=== PATIENT | female | born 1980 | race Caucasian/White ===

== ENCOUNTER 2018-11-14 08:29 | Emergency (ER) | payer SELFPAY ==
[2018-11-14 08:33] VITALS: BP 124/81; PULSE 85; RESP 12; TEMP 36.6; O2SAT 100; BMI 18.1
--- NOTE | 2018-11-14 08:53 | US_ITS ---
STUDY: ULTRASOUND OF THE FEMALE PELVIS - COMPLETE REASON FOR EXAM: Female, 38 years old. Irregular masses. One day history of the bleeding and cramping. LMP: November 03, 2018. TECHNIQUE: Transvaginal TECHNICAL QUALITY: Adequate. COMPARISON: None. FINDINGS: The uterus is anteverted and is in a midline position. The uterus measures 7.2 cm x 4.6 cm x 3.4 cm. Normal uterine cervix. The endometrium measures 5.0 mm in thickness, and is hyperechoic. There is no demonstrated endometrial mass. Heterogeneous echotexture of the uterus suggestive of a fibroid change although no focal fibroid is seen. I.U.D. - The patient does not have an I.U.D. The patient is status post right nephrectomy. The left ovary is visualized. The left ovary measures 3.7 cm x 3.6 cm x 1.8 cm. A dominant follicle is seen within it measuring 1.2 cm x 1.2 cm x 1.0 cm. There is no visualized left adnexal mass or complex lesion. There is normal arterial and normal venous vascularity. There is no fluid in the cul-de-sac. Polycystic ovary disease: No. US/Transvaginal Non- IMPRESSION: Heterogeneous echotexture of the uterus in keeping with fibroid changes although no focal fibroid is seen. Electronically Signed: Radhames Mcfarlane MD at 10:43 EST , Service support ,
[2018-11-14 09:20] LABS: Absolute Lymphocyte Count 1.37 X10^3/ul (0.83-4.51); Absolute Neutrophil Count 6.7 X10^3/uL (2.0-7.7); Basophil# 0.01 X10^3/uL; Basophil% 0.1 % (0-1); Eosinophil# 0.03 X10^3/uL; Eosinophils% 0.3 % (0-5); Hematocrit 44.8 % (37-47); Hemoglobin 14.4 g/dl (12.0-15.0); Lymphocyte # 1.37 X10^3/ul (4.0); Lymphocyte % 15.6 % (19-41); Mean Corp Hgb Conc 32.1 g/gl (32-36); Mean Corpuscular Hgb 27.9 pg (27.0-32.0); Mean Corpuscular Volume 86.8 fL (81-99); Monocyte# 0.67 X10^3/uL; Monocyte% 7.6 % (0-10); Neutrophil # 6.67 X10^3/uL (2.7-7.7); Neutrophil % 76.1 % (47-70); POSITIVE COUNT NO; POSITIVE DIFFERENTIAL NO; POSITIVE MORPHOLOGY NO; Platelet Count 211 K/mm3 (150-450); RBC Distribution Width CV 14.1 % (11.6-14.6); RBC Distribution Width SD 44.4 fl (35.1-43.9); Red Blood Count 5.16 M/mm3 (4.2-5.4); White Blood Count 8.8 K/mm3 (4.4-11.0)
[2018-11-14 09:26] LABS: Partial Thromboplast Time 26.1 Seconds (24.1-36.2); Prothrombin Time (Protime)PT. 13.3 SECONDS (11.7-14.9)
[2018-11-14 09:38] LABS: hCG Titer Quant., Serum < 1 mIU/mL (<9 non-preg)
[2018-11-14 10:54] VITALS: BP 119/82; PULSE 71; RESP 14; O2SAT 99
--- NOTE | 2018-11-14 11:05 | ED.DCSUM_ITS ---
- ER Visit Summary Date of Service: 11/14/18 Chief Complaint: Vaginal bleeding History of Present Illness: The patient is a 38 F who states that she woke this morning with vaginal bleeding. She states that while she was at work today she began to have a lot of pelvic cramping. She denies any clots. She is . Last menstrual cycle 1.5 weeks ago. She does not have primary care or [facility]. She is a smoker. She has a history of ovarian cyst H led to a right nephrectomy. She is also had bilateral tubal ligation. No vaginal discharge. Physical Examination: Afebrile vital signs stable Gen: Well-nourished well-developed Head: Normocephalic atraumatic Eyes: Perrl EOMI ENT: TMs clear no rhinorrhea moist mucous membranes Neck: Supple no lymphadenopathy no JVD nontender CVS: Regular rate rhythm no murmurs normal S1-S2 Respiratory: No distress clear to auscultation bilaterally chest nontender Abdomen: Soft nontender nondistended normal bowel sounds no masses Back: Nontender Extremity: Nontender no edema Skin: Normal color no rash Neuro: alert orientated ?3 CN II-XII intact normal strength sensation reflexes gait cerebellar Psych: Normal affect normal mood Test Results: Hemoglobin normal. Coags normal platelet count normal. Pelvic ultrasound was obtained. Please see radiology read for details. Emergency Department Course and Treatment: Patient appears to have a stable irregular vaginal bleeding. She will follow-up with [facility]. Dr. Ho is on- call for them today. Return instructions given Impression: 1. Irregular vaginal bleeding This note was generated with [employer] dictation software. It may contain incorrect words, spelling, and punctuation that were not noted in review of the chart prior to signing ED Disposition - Plan for ED Patient: Disposition: Home or Assisted Living Chief Complaint: Vag Bleeding Instructions: ED Bleed Irregular Vaginal, ED Fibroids Referrals: Bernice Ho MD [STAFF PHYSICIAN] - As soon as possible
[2018-11-14 11:22] VITALS: BP 112/74; PULSE 70; RESP 20; O2SAT 97
== END 2018-11-14 11:23 | disposition home or self-care (01) ==
PROVIDERS: Emergency Provider Emergency Medicine
DX: N93.9 Abnormal uterine and vaginal bleeding, unspecified (principal); F17.200 Nicotine dependence, unspecified, uncomplicated; Z98.51 Tubal ligation status; Z90.5 Acquired absence of kidney
CPT/HCPCS: 76830; 84702; 85025; 85610; 85730; 93976; 99283; A4216

== ENCOUNTER → 2019-02-08 15:12 | Outpatient (CLI) | payer OTHER, SELFPAY ==
[2019-02-08 16:25] LABS: Follicle Stimulating Hormone 4.7 mIU/mL; Free T3 2.5 pg/mL (2.18-3.98); T4 Free Direct 0.88 ng/dL (0.76-1.46); Thyroid Stim Hormone (TSH) 0.31 uIU/mL (0.358-3.74)
[2019-02-08 16:26] LABS: Color, Urine Yellow (Yellow); Glucose, Dipstick Normal (Normal); Ketone-Dipstick 5 mg/dl (Negative); Leukocyte Esterase-Dipstick 25 /ul (Negative); Nitrite-Dipstick Negative (Negative); Occult Blood-Urine 150 /ul (Negative); Protein-Dipstick Negative (Negative); Specific Gravity, Urine 1.015 (1.002-1.030); Urine Bilirubin Dipstick Negative (Negative); Urine Clarity Sl. Cloudy (Clear); Urine Urobilinogen Normal (Normal)
[2019-02-13 17:35] LABS: HPV Reflexed? NOT INDICATED
== END ==
PROVIDERS: Visit Provider Obstetrics & Gynecology
DX: N92.1 Excessive and frequent menstruation with irregular cycle (principal); R30.0 Dysuria
CPT/HCPCS: 36415; 81002; 83001; 84439; 84443; 84481; 87077; 87086; 87088; 87186; 88175; G0145